=== PATIENT | female | born 1960 | race Caucasian/White ===

== ENCOUNTER 2016-10-28 09:41 | Day surgery (SDC) | payer OTHER ==
[2016-10-27 14:43] VITALS: BMI 23.3
[2016-10-28 13:20] VITALS: TEMP 97.8
[2016-10-28 14:24] VITALS: BP 120/76; PULSE 45
== END 2016-10-28 14:23 | disposition home or self-care (01) ==
LOC: JASU-ENDO 09:41
PROVIDERS: ATTEND Internal Medicine Gastroenterology
PROC: 0DJD8ZZ Inspection of Lower Intestinal Tract, Via Natural or Artificial Opening Endoscopic (ICD-10-PCS; principal; 2016-10-28 11:30)
DX: Z86.010 Personal history of colon polyps (principal); K63.89 Other specified diseases of intestine

== ENCOUNTER 2016-11-11 06:05 | Day surgery (SDC) | payer OTHER ==
[2016-11-10 15:33] VITALS: BMI 23.3
[2016-11-11] MEDS ORDERED: MIDAZOLAM HCL 2 MG/2 ML SINGLE DOSE VIAL ONE (07:22)
[2016-11-11] MEDS ORDERED: PROPOFOL 20 ML ONE ×2 (07:22)
[2016-11-11] MEDS ORDERED: LIDOCAINE HCL/PF 2% SDV 5ML VIAL ONE (07:24)
[2016-11-11] MEDS ORDERED: LEVOFLOXACIN 500 MG PREMIX BAG IVPB ONE (07:34)
[2016-11-11] MEDS ORDERED: oxyCODONE HCL 5 MG TABLET PO PRN (08:00)
[2016-11-11] MEDS ORDERED: ELECTROLYTE-148 SOLN 1,000 ML IV SCH (08:00)
--- NOTE | 2016-11-11 08:03 | OP ---
Operative Note - Note: Operative Date: 11/11/16 Pre-Operative Diagnosis: left kidney stone Operation: ESWL Findings: 5mm left kidney stone Post-Operative Diagnosis: Same as Pre-op Surgeon: Braydon Horvath Anesthesia: General Estimated Blood Loss (mls): 0 Operative Report Dictated: Yes
[2016-11-11] MEDS ORDERED: ACETAMINOPHEN 325 MG TABLET (FP) PO PRN (08:06)
[2016-11-11] MEDS ORDERED: ONDANSETRON 4 MG/2 ML VIAL IVPUSH PRN (08:06)
[2016-11-11] MEDS ORDERED: LACTATED RINGERS SOLUTION 1,000 ML IV SCH (08:15)
[2016-11-11 08:32] VITALS: TEMP 97.6
--- NOTE | 2016-11-11 08:40 | OP ---
DATE OF OPERATION: 11/11/2016 PREOPERATIVE DIAGNOSIS: A 5-mm left kidney stone. POSTOPERATIVE DIAGNOSIS: A 5-mm left kidney stone. PROCEDURE: Extracorporeal shock wave lithotripsy. SURGEON: Kevin Gonzales MD INDICATIONS: Patient is a 56-year-old female with history of recurrent nephrolithiasis, noted to have a 5-mm stone in the left kidney. After reviewing treatment options, she elected to undergo ESWL, understanding the risks of bleeding, infection, inadequate fragmentation of stone, and potential need for additional procedures. DESCRIPTION OF PROCEDURE: After informed consent was obtained, the patient was taken to the OR, placed supine on the ESWL table. Under ultrasound guidance, the stone was visualized. Patient was then given general anesthesia. Then, 2500 shocks were delivered under active sonography. There appeared to be fragmentation of stone under sonography. After the shocks were completed, patient was awoken from anesthesia without incident. There were no complications. She was transferred to the recovery room in stable condition. There were no complications. Estimated blood loss was zero. KEVIN GONZALES M.D. [id number]
[2016-11-11 10:53] VITALS: BP 92/50; PULSE 58
== END 2016-11-11 10:53 | disposition home or self-care (01) ==
LOC: JASU-SURG 06:05
PROVIDERS: ATTEND Urology
PROC: 0TF4XZZ Fragmentation in Left Kidney Pelvis, External Approach (ICD-10-PCS; principal; 2016-11-11 07:30)
DX: N20.0 Calculus of kidney (principal)
CPT/HCPCS: 94760

== ENCOUNTER 2018-02-28 03:02 | Emergency (ER) | payer OTHER ==
[2018-02-28 03:27] VITALS: BMI 22.1
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
[2018-02-28 04:11] VITALS: BP 122/76; PULSE 77; TEMP 98.3
== END 2018-02-28 03:58 | disposition home or self-care (01) ==
LOC: JER 03:02
DX: S02.2XXA Fracture of nasal bones, initial encounter for closed fracture (principal); Y04.2XXA Assault by strike against or bumped into by another person, initial encounter; Y93.89 Activity, other specified; Y92.511 Restaurant or cafe as the place of occurrence of the external cause; Y99.0 Civilian activity done for income or pay; E78.00 Pure hypercholesterolemia, unspecified; Z72.0 Tobacco use
CPT/HCPCS: 70160-TC-FY; 99281-25

== ENCOUNTER 2018-04-02 10:18 | Emergency (ER) | payer OTHER ==
[2018-04-02] MEDS ORDERED: FAMOTIDINE 20 MG/50 ML IVPB 20 MG/50 ML MG IVPB ONE ×2 (10:30→12:16)
[2018-04-02] MEDS ORDERED: ACETAMINOPHEN 1000 MG/100 ML VIAL (NON FORMULARY) IVPB ONE (10:30)
[2018-04-02] MEDS ORDERED: ONDANSETRON 4 MG/2 ML VIAL IVPUSH ONE (10:30)
[2018-04-02] MEDS ORDERED: SODIUM CHLORIDE 1,000 ML IV STA (10:30)
[2018-04-02] MEDS ORDERED: ONDANSETRON 4 MG/2 ML VIAL ONE (10:47)
[2018-04-02] MEDS ORDERED: ACETAMINOPHEN INJECTION 100 ML IVPB ONE (10:47)
[2018-04-02] MEDS ORDERED: METOCLOPRAMIDE HCL INJECTION 10 MG/2 ML VIAL IVPUSH ONE (10:52)
[2018-04-02] MEDS ORDERED: METOCLOPRAMIDE HCL INJECTION 10 MG/2 ML VIAL ONE (10:52)
[2018-04-02 11:04] LABS: BASO % 0.4 % (0-2.0); HEMATOCRIT 48.9 % (32.4-45.2); HEMOGLOBIN 16.3 GM/dL (10.7-15.3); LYMPH % 7.8 % (8-40); MCH 29.3 pg (25.7-33.7); MCHC 33.3 g/dl (32.0-36.0); MEAN CELL VOLUME 87.8 fl (80-96); MEAN PLT VOLUME 7.7 fl (7.5-11.1); MONO % 4.7 % (3.8-10.2); NEUT % 87.1 % (42.8-82.8); PLATELET COUNT 351 K/MM3 (134-434); RBC 5.57 M/mm3 (3.60-5.2); RDW 13.5 % (11.6-15.6); WHITE BLOOD COUNT 12.8 K/mm3 (4.0-10.0)
--- NOTE | 2018-04-02 11:07 | PDOC ---
History of Present Illness - General Chief Complaint: Nausea/Vomiting Stated Complaint: VOMITING Time Seen by Provider: 04/02/18 10:24 History Source: Patient Exam Limitations: No Limitations - History of Present Illness Initial Comments: 04/02/18 11:04 Patient is a 57F with history of hiatal hernia, s/p appy, s/p azeem here today complaining of vomiting that started at 6pm yesterday after eating a pasta dish. Patient states that she hasn't been able to keep anything down since then. Denies fevers, endorses chills. Endorses associated epigastric abdominal pain. Denies dysuria, last bowel movement yesterday. Denies etoh, endorses smoking, denies illicits. Past History - Past Medical History Allergies/Adverse Reactions: Allergies Allergy/AdvReac Type Severity Reaction Status Date / Time Penicillins Allergy Severe Swelling Verified 04/02/18 10:24 shellfish derived Allergy Severe Swelling Verified 04/02/18 10:24 Home Medications: Ambulatory Orders Omeprazole Magnesium [Prilosec (OTC)] 40 mg PO HS 03/22/12 Aspirin [ASA -] 81 mg PO HS 10/22/15 Metoclopramide HCl [Reglan -] 10 mg PO DAILY #7 tablet 04/02/18 Anemia: No Asthma: No Cancer: No Cardiac Disorders: No CVA: No COPD: No CHF: No Dementia: No Diabetes: No GI Disorders: Yes (HIATAL HERNIA,, POLYPS) Disorders: No HTN: No Hypercholesterolemia: Yes Liver Disease: No Seizures: No Thyroid Disease: No - Surgical History Abdominal Surgery: No Appendectomy: Yes Cardiac Surgery: No Cholecystectomy: Yes Lung Surgery: No Neurologic Surgery: No Orthopedic Surgery: Yes - Immunization History Immunization Up to Date: Yes - Suicide/Smoking/Psychosocial Hx Smoking Status: Yes Smoking History: Current every day smoker Have you smoked in the past 12 months: No Number of Cigarettes Smoked Daily: 15 Information on smoking cessation initiated: Yes 'Breaking Loose' booklet given: 10/22/15 Hx Alcohol Use: No Drug/Substance Use Hx: No Substance Use Type: None Hx Substance Use Treatment: No Review of Systems - Review of Systems Comments:: 04/02/18 11:05 GENERAL/CONSTITUTIONAL: No fever or chills. No weakness. HEAD, EYES, EARS, NOSE AND THROAT: No change in vision. No sore throat. CARDIOVASCULAR: No chest pain or shortness of breath RESPIRATORY: No cough, wheezing, or hemoptysis. GASTROINTESTINAL: +nausea, vomiting. No diarrhea or constipation. GENITOURINARY: No dysuria, frequency, or change in urination. MUSCULOSKELETAL: No joint or muscle swelling or pain. No neck or back pain. SKIN: No rash NEUROLOGIC: No headache, vertigo, loss of consciousness, or change in strength/ sensation. ENDOCRINE: No increased thirst. No abnormal weight change HEMATOLOGIC/LYMPHATIC: No anemia, easy bleeding, or history of blood clots. ALLERGIC/IMMUNOLOGIC: No hives or skin allergy. *Physical Exam - Vital Signs Last Vital Signs Temp Pulse Resp BP Pulse Ox 99.2 F 61 20 125/70 100 04/02/18 10:24 04/02/18 10:24 04/02/18 10:24 04/02/18 10:24 04/02/18 10:24 - Physical Exam Comments: 04/02/18 11:06 GENERAL: Awake, alert, and fully oriented HEAD: No signs of trauma, normocephalic, atraumatic EYES: PERRLA, EOMI, sclera anicteric, conjunctiva clear ENT: Auricles normal inspection, hearing grossly normal, nares patent, oropharynx clear without exudates. Moist mucosa NECK: Normal ROM, supple, no lymphadenopathy, JVD, or masses LUNGS: No distress, speaks full sentences, clear to auscultation bilaterally HEART: Regular rate and rhythm, normal S1 and S2, no murmurs, rubs or gallops, peripheral pulses normal and equal bilaterally. ABDOMEN: Soft, +epigastric tenderness, normoactive bowel sounds. No guarding, no rebound. No masses EXTREMITIES: Normal inspection, Normal range of motion, no edema. No clubbing or cyanosis. NEUROLOGICAL: Cranial nerves II through XII grossly intact. Normal speech, no focal sensorimotor deficits SKIN: Warm, Dry, normal turgor, no rashes or lesions noted. ED Treatment Course - LABORATORY CBC & Chemistry Diagram: 04/02/18 10:52 04/02/18 10:52 Medical Decision Making - Medical Decision Making 04/02/18 11:07 Patient is 57F here today with vomiting. Vital signs normal and stable. DDx includes, but is not limited to: gastritis, pancreatitis, food poisoning. Will evaluate with abdominal labs, treat with fluids, reglan, pepcid, tylenol. 04/02/18 14:58 Laboratory Tests 04/02/18 04/02/18 04/02/18 10:52 10:52 12:35 WBC 12.8 H Hgb 16.3 H Plt Count 351 BUN 19 H Creatinine 0.8 Troponin I < 0.02 Urine Ketones 40 mg/dl Urine Blood Large Urine Nitrite Negative Ur Leukocyte Esterase Negative CBC shows leukocytosis. Hgb elevated, likely secondary to dehydration. UA shows blood, not on menstrual period. No infection. Troponin undetectable. EKG shows sinus bradycardia with rate of 51. No st elevation/depression. Normal axis. Normal intervals. T wave inversion in V2 and V3, same as EKG done in 2015. Patient reassessed, tolerating PO, asking to go home. Given return precautions, instructed to follow up with primary care physician. *DC/Admit/Observation/Transfer Diagnosis at time of Disposition: Vomiting - Discharge Dispostion Disposition: HOME Condition at time of disposition: Good Decision to Admit order: No - Prescriptions Prescriptions: Metoclopramide HCl [Reglan -] 10 mg PO DAILY #7 tablet - Referrals Referrals: David Dawson [Primary Care Provider] - - Patient Instructions Printed Discharge Instructions: DI for Vomiting -- Adult Additional Instructions: Please follow up with your primary care physician. Please return if you have any new, worsening or concerning symptoms. - Post Discharge Activity
[2018-04-02 11:29] LABS: CHLORIDE 104 mmol/L (98-107); POTASSIUM 3.6 mmol/L (3.5-5.1); SODIUM 143 mmol/L (136-145)
[2018-04-02 11:48] LABS: ALBUMIN 3.9 g/dl (3.4-5.0); ALK PHOS 98 U/L (45-117); ANION GAP 18 MMOL/L (8-16); BILIRUBIN,TOTAL 0.5 mg/dL (0.2-1.0); BLOOD UREA NITROGEN 19 mg/dL (7-18); CALCIUM 9.5 mg/dL (8.5-10.1); CO2 21 mmol/L (21-32); CREATININE 0.8 mg/dL (0.55-1.3); GLUCOSE,RANDOM 132 mg/dL (74-106); LIPASE 145 U/L (73-393); SGOT/AST 17 U/L (15-37); SGPT/ALT 21 U/L (13-61); TOT PROT 7.4 g/dl (6.4-8.2)
--- NOTE | 2018-04-02 12:20 | PDOC ---
Attending Attestation - Resident Resident Name: Cj Serra - ED Attending Attestation I have performed the following: I have examined & evaluated the patient, The case was reviewed & discussed with the resident, I agree w/resident's findings & plan - HPI HPI: 04/02/18 12:19 Blaire 57 YOF PMHx hiatal hernia, s/p azeem and appy, presenting with epigastric abdominal pain, nausea and NBNB emesis x multiple episodes since last night 6pm. Normal BM, though loose stooling. +suspicious food intake, icelandic food/ pasta dish. No other sick contacts. No f/c. - Physicial Exam PE: 04/02/18 12:19 NAD, well appearing, MMM, nl conjunctiva, anicteric; neck supple. lungs clear, RRR, abdomen soft nontender, no CVAT. no guarding or rebound.. DE x4. No peripheral edema. normal color for ethnicity, WWP. +clubbing in fingers 04/02/18 14:41 - Medical Decision Making 04/02/18 12:19 Blaire 57 YOF PMHx hiatal hernia, s/p azeem and appy, presenting with epigastric abdominal pain, nausea and NBNB emesis x multiple episodes since last night 6pm. Normal BM, though loose stooling. +suspicious food intake, icelandic food/ pasta dish. No other sick contacts. No f/c. Vital signs reviewed, wnl. DDx abdominal pain: GERD, PUD, esophageal spasm, pancreatitis, hepatitis, colitis, gastroenteritis, ileus, doubt SBO, medication side effect, hernia Prior notes reviewed, including admissions, discharges and consultations. laboratory results and imaging reviewed, basic labs and lytes wnl, notable for mild WBC ct with hemoconcentration, corrrelating with dehydration/hypovolemia 2/ 2 vomiting. LFTs and lipase wnl. given pepcid, IVF, reglan, with clinical improvement. abdomen soft and benign, non peritoneal to suggest intra abdominal pathology. Tolerating ice chips and no vomiting here. UA with ketones and some blood, but not clinically fitting renal colic. perimenopausal. EKG normal sinus rhythm, no interval abnormalities, narrow QRS, ST segments and morphology normal. Nonspecific T wave abnormalities, TWI in anterior/septal leads, unchanged from prior. Trop neg, doubt ACS /cardiac. Dispo: Pt to be discharged in stable condition. Patient and family made aware of impression and plan, return precautions discussed (including but not limited to worsening pain or symptoms), fevers, or signs of infection, chest pain, respiratory distress, inability to tolerate oral intake, dehydration, syncope, or neurologic changes). Follow up with PMD and/or specialist as recommended, follow up information provided, take medications as instructed for duration of time, rx Reglan PRN n/v, likely food poisoning so start with fluids/soups and adv as tolerated.. continue with supportive care, avoid triggers and precipitants. All questions answered to patient's satisfaction and expressed understanding and comfort with this. 04/02/18 15:15 Heart Score/ECG Review - ECG Impressions Comment:: 04/02/18 15:17 EKG normal sinus rhythm, no interval abnormalities, narrow QRS, ST segments and morphology normal. Nonspecific T wave abnormalities, TWI in anterior/septal leads, unchanged from prior.
[2018-04-02 14:11] VITALS: BP 118/63; TEMP 97.9
[2018-04-02 14:22] LABS: URINE APPEARANCE Clear; URINE BILIRUBIN Small (<2.0 mg/dL); URINE COLOR Yellow; URINE GLUCOSE (UA) Negative (NEGATIVE); URINE KETONE 40 mg/dl (NEGATIVE); URINE LEUK ESTERASE Negative (NEGATIVE); URINE NITRITE Negative (NEGATIVE); URINE UROBILINOGEN 0.2 mg/dL (0.2-1.0)
[2018-04-02 15:25] VITALS: PULSE 60
--- NOTE | 2018-04-04 22:06 | EKG ---
Test Reason : Blood Pressure : / mmHG Vent. Rate : 051 BPM Atrial Rate : 051 BPM P-R Int : 138 ms QRS Dur : 084 ms QT Int : 492 ms P-R-T Axes : 079 057 051 degrees QTc Int : 453 ms SINUS BRADYCARDIA T WAVE ABNORMALITY, CONSIDER ANTERIOR ISCHEMIA ABNORMAL ECG WHEN COMPARED WITH ECG OF 18-MAR-2016 06:26, NONSPECIFIC T WAVE ABNORMALITY NO LONGER EVIDENT IN LATERAL LEADS Confirmed by BRYAN SOSA MD ([id number]) on 04/04/2018 10:06:26 PM Referred By: Confirmed By:BRYAN SOSA MD
== END 2018-04-02 15:15 | disposition home or self-care (01) ==
LOC: JER 10:18
PROC: 3E033GC Introduction of Other Therapeutic Substance into Peripheral Vein, Percutaneous Approach (ICD-10-PCS; principal; 2018-04-02)
PROC: 3E0337Z Introduction of Electrolytic and Water Balance Substance into Peripheral Vein, Percutaneous Approach (ICD-10-PCS; 2018-04-02)
PROC: 3E033NZ Introduction of Analgesics, Hypnotics, Sedatives into Peripheral Vein, Percutaneous Approach (ICD-10-PCS; 2018-04-02)
DX: E78.00 Pure hypercholesterolemia, unspecified (principal)
CPT/HCPCS: 36415; 80053; 81003; 82550; 83690; 84484; 85025; 93005; 93010; 96361; 96365; 96375; 99284-25; J0131; J7030

== ENCOUNTER 2019-02-02 14:36 | Emergency (ER) | payer OTHER ==
[2019-02-02 14:59] VITALS: BP 134/65; PULSE 74; TEMP 98.5; BMI 21.8
--- NOTE | 2019-02-02 14:59 | PDOC ---
Rapid Medical Evaluation Chief Complaint: Pain Time Seen by Provider: 02/02/19 14:56 Medical Evaluation: Allergies Allergy/AdvReac Type Severity Reaction Status Date / Time Penicillins Allergy Severe Swelling Verified 04/02/18 10:24 shellfish derived Allergy Severe Swelling Verified 04/02/18 10:24 02/02/19 14:58 I have performed a brief in-person evaluation of this patient. The patient presents with a chief complaint of: right heel pain x 1 week. no exercise change/ trauma Pertinent physical exam findings: walks with limp I have ordered the following: Xray foot The patient will proceed to the ED for further evaluation. Discharge Disposition - Diagnosis Foot pain, right - Referrals - Patient Instructions - Post Discharge Activity
--- NOTE | 2019-02-02 15:27 | PDOC ---
History of Present Illness - General Chief Complaint: Pain Stated Complaint: RT. FOOT PAIN/ X-RAY Time Seen by Provider: 02/02/19 14:56 History Source: Patient Exam Limitations: No Limitations - History of Present Illness Initial Comments: 02/02/19 15:45 HISTORY OF PRESENT ILLNESS: 58-year-old woman with multiple orthopedic surgeries who presents emergency department for evaluation of atraumatic right heel pain which is worsened over the past 7 days. Patient noted pain worsens when she is ambulatory but improves with rest. Patient denies any trauma. Patient describes the pain as a searing burning sensation to the sole of her right foot localized in the mid foot to the heel. Patient reports the pain is a 15/10. Patient called up her primary doctor who told her to come to emergency department for x-ray and evaluation. Patient has contacted her supervisor filling and packing for evaluation and is secured an appointment for the first week of February. No recent travel or sick contacts. PAST MEDICAL HISTORY: Denies past medical history SURGICAL HISTORY: Denies ALLERGIES: No known drug allergies REVIEW OF SYSTEMS General/Constitutional: Denies fever or chills. Denies weakness, weight change. HEENT: Denies change in vision. Denies ear pain or discharge. Denies sore throat. Cardiovascular: Denies chest pain or shortness of breath. Respiratory: Denies cough, wheezing, or hemoptysis. Gastrointestinal: Denies nausea, vomiting, diarrhea or constipation. Denies rectal bleeding. Genitourinary: Denies dysuria, frequency, or change in urination. Musculoskeletal: see HPI. Skin and breasts: Denies rash or easy bruising. Neurologic: Denies headache, vertigo, loss of consciousness, or loss of sensation. Psychiatric: Denies depression or anxiety. Endocrine: Denies increased thirst. Denies abnormal weight change. Hematologic/Lymphatic: Denies anemia, easy bleeding, or history of blood clots. Allergic/Immunologic: Denies hives or skin allergy. Denies latex allergy. PHYSICAL EXAM General Appearance: Well-appearing, appropriately dressed. No apparent distress , no intoxication. Respiratory/Chest: Lungs CTAB. No shortness of breath, chest tenderness, respiratory distress, accessory muscle use. No crackles, rales, rhonchi, stridor , wheezing, dullness Cardiovascular: RRR. S1, S2. No JVD, murmur, bradycardia, tachycardia. Vascular Pulses: Dorsalis-Pedis (R): 2+, Dorsalis-Pedis (L): 2+ Musculoskeletal/Extremities: Tender to palpation over right calcaneus. No bony deformity, crepitus or step-off is present. Surface of the foot is hypopigmented exanthem the calcaneus to the midfoot. Skin is firm. Integumentary: Appropriate color, dry, warm. No cyanosis, erythema, jaundice or rash Neurologic: anatomy teacher II-XII intact. Fully oriented, alert. Appropriate mood/affect. Motor strength 5/5. No appreciable EOM palsy, facial droop or sensory deficit. Past History - Past Medical History Allergies/Adverse Reactions: Allergies Allergy/AdvReac Type Severity Reaction Status Date / Time Penicillins Allergy Severe Swelling Verified 02/02/19 14:59 shellfish derived Allergy Severe Swelling Verified 02/02/19 14:59 Home Medications: Ambulatory Orders Omeprazole Magnesium [Prilosec (OTC)] 40 mg PO HS 03/22/12 Aspirin [ASA -] 81 mg PO HS 10/22/15 Anemia: No Asthma: No Cancer: No Cardiac Disorders: No CVA: No COPD: No CHF: No Dementia: No Diabetes: No GI Disorders: Yes (HIATAL HERNIA,, POLYPS) Disorders: No HTN: No Hypercholesterolemia: Yes Liver Disease: No Seizures: No Thyroid Disease: No - Surgical History Abdominal Surgery: No Appendectomy: Yes Cardiac Surgery: No Cholecystectomy: Yes Lung Surgery: No Neurologic Surgery: No Orthopedic Surgery: Yes - Immunization History Immunization Up to Date: Yes - Suicide/Smoking/Psychosocial Hx Smoking Status: Yes Smoking History: Current every day smoker Have you smoked in the past 12 months: Yes Number of Cigarettes Smoked Daily: 10 Information on smoking cessation initiated: No 'Breaking Loose' booklet given: 10/22/15 Hx Alcohol Use: No Drug/Substance Use Hx: No Substance Use Type: None Hx Substance Use Treatment: No *Physical Exam - Vital Signs Last Vital Signs Temp Pulse Resp BP Pulse Ox 98.5 F 74 21 H 134/65 100 02/02/19 14:56 02/02/19 14:56 02/02/19 14:56 02/02/19 14:56 02/02/19 14:56 Medical Decision Making - Medical Decision Making 02/02/19 15:50 A/P: 58-year-old with plantar fasciitis Patient is refusing pain medication at this time Discharge home to follow-up with podiatry *DC/Admit/Observation/Transfer Diagnosis at time of Disposition: Plantar fasciitis of right foot - Discharge Dispostion Disposition: HOME Condition at time of disposition: Stable Decision to Admit order: No - Referrals Referrals: Son Amador MD [Staff Physician] - - Patient Instructions Printed Discharge Instructions: DI for Plantar Fasciitis Additional Instructions: Rest. Take [id number] medication such as Tylenol with Aleve or Motrin for pain. Follow manufacture's instructions for appropriate dosage. Keep your previously scheduled appointment with Dr. Amador for reevaluation. Return to the emergency department for any new or worsening symptoms. Thank you very much for choosing us to provide your emergent health care needs. - Post Discharge Activity
== END 2019-02-02 15:35 | disposition home or self-care (01) ==
LOC: JERFT 14:36
DX: M72.2 Plantar fascial fibromatosis (principal)
CPT/HCPCS: 73630-TC-RT-FY; 99281-25

== ENCOUNTER 2019-04-24 16:21 | Emergency (ER) | payer OTHER ==
[2019-04-24 16:29] VITALS: BP 95/61; PULSE 75; TEMP 98.2; BMI 21.6
[2019-04-24] MEDS ORDERED: IBUPROFEN 400 MG TABLET (FP) PO ONE (17:24)
--- NOTE | 2019-04-24 17:36 | PDOC ---
History of Present Illness - General Chief Complaint: Pain Stated Complaint: INJURY Time Seen by Provider: 04/24/19 17:06 History Source: Patient Exam Limitations: Clinical Condition - History of Present Illness Initial Comments: 04/24/19 17:32 Patient with no significant past medical history present with complaint of 3- day history of pain to right lower rib cage which came on suddenly without trauma or injury3 days ago. . Denies shortness of breath, chest pain, dizziness, cough pain, nausea vomiting. Patient reported taking Motrin for pain 3 days ago and has not taken anything else. Denies fever, chills. Denies any other symptoms Is this a multiple visit Asthma Patient?: No Timing/Duration: other (3 days) Past History - Past Medical History Allergies/Adverse Reactions: Allergies Allergy/AdvReac Type Severity Reaction Status Date / Time Penicillins Allergy Severe Swelling Verified 04/24/19 16:58 shellfish derived Allergy Severe Swelling Verified 04/24/19 16:58 Home Medications: Ambulatory Orders Omeprazole Magnesium [Prilosec (OTC)] 40 mg PO HS 03/22/12 Aspirin [ASA -] 81 mg PO HS 10/22/15 Anemia: No Asthma: No Cancer: No Cardiac Disorders: No CVA: No COPD: No CHF: No Dementia: No Diabetes: No GI Disorders: Yes (HIATAL HERNIA,, POLYPS) Disorders: No HTN: No Hypercholesterolemia: Yes Liver Disease: No Seizures: No Thyroid Disease: No - Surgical History Abdominal Surgery: No Appendectomy: Yes Cardiac Surgery: No Cholecystectomy: Yes Lung Surgery: No Neurologic Surgery: No Orthopedic Surgery: Yes - Immunization History Immunization Up to Date: Yes - Psycho Social/Smoking Cessation Hx Smoking Status: Yes Smoking History: Current every day smoker Have you smoked in the past 12 months: Yes Number of Cigarettes Smoked Daily: 10 Information on smoking cessation initiated: No 'Breaking Loose' booklet given: 10/22/15 Hx Alcohol Use: No Drug/Substance Use Hx: No Substance Use Type: None Hx Substance Use Treatment: No Review of Systems - Review of Systems Able to Perform ROS?: Yes Is the patient limited [place]er proficient: No Constitutional: No: Chills, Fever, Malaise HEENTM: No: Symptoms Reported, See HPI, Eye Pain, Blurred Vision, Tearing, Recent change in vision, Double Vision, Cataracts, Ear Pain, Ocular Prothesis, Ear Discharge, Nose Pain, Nose Congestion, Tinnitus, Nose Bleeding, Hearing Loss , Throat Pain, Throat Swelling, Mouth Pain, Dental Problems, Difficulty Swallowing, Mouth Swelling, Other Respiratory: No: Symptoms reported, See HPI, Cough, Orthopnea, Shortness of Breath, SOB with Exertion, SOB at Rest, Stridor, Wheezing, Productive cough, Hemoptysis, Other Cardiac (ROS): No: Symptoms Reported, See HPI, Chest Pain, Edema, Irregular Heart Rate, Lightheadedness, Palpitations, Syncope, Chest Tightness, Other ABD/GI: No: Nausea, Vomiting : No: Burning, Discharge, Frequency, Urgency Musculoskeletal: Yes: Symptoms Reported, See HPI, Muscle Pain (right lower ribcage pain) Integumentary: No: Symptoms Reported All Other Systems: Reviewed and Negative *Physical Exam - Vital Signs Last Vital Signs Temp Pulse Resp BP Pulse Ox 98.2 F 75 18 95/61 99 04/24/19 16:27 04/24/19 16:27 04/24/19 16:27 04/24/19 16:27 04/24/19 16:27 - Physical Exam Comments: 04/24/19 17:32 GENERAL: Well developed, well nourished. Awake and alert. No acute distress. HEENT: Normocephalic, atraumatic. PERRLA, EOMI. No conjunctival pallor. Sclera are non-icteric. Moist mucous membranes. Oropharynx is clear. NECK: Supple. Full ROM. CARDIOVASCULAR: Regular rate and rhythm. No murmurs, rubs, or gallops. Distal pulses are 2+ and symmetric. PULMONARY: No evidence of respiratory distress. Lungs clear to auscultation bilaterally. No wheezing, rales or rhonchi. ABDOMINAL: Soft. Non-tender. Non-distended. No rebound or guarding. No organomegaly. Normoactive bowel sounds. MUSCULOSKELETAL Normal range of motion at all joints. Moderate tenderness to lateral aspect of right lower rib cage over the 11th and 12 rib on right side. SKIN: Warm and dry. Normal capillary refill. No bruising or ecchymosis to skin of right rib. NEUROLOGICAL: Alert, awake, appropriate. Gait is normal without ataxia. PSYCHIATRIC: Cooperative. Good eye contact. Appropriate mood General Appearance: Yes: Nourished, Appropriately Dressed. No: Apparent Distress ED Treatment Course - RADIOLOGY Radiology Studies Ordered: Category Date Time Status CHEST - PA [RAD] Stat Radiology 04/24/19 17:22 Ordered RIBS RIGHT SIDE [RAD] Stat Radiology 04/24/19 17:22 Ordered Medical Decision Making - Medical Decision Making 04/24/19 17:36 Patient with no significant past medical history present with complaint of 3- day history of pain to right lower rib cage which came on suddenly without trauma or injury3 days ago. . Denies shortness of breath, chest pain, dizziness, cough pain, nausea vomiting. Patient reported taking Motrin for pain 3 days ago and has not taken anything else. Denies fever, chills. Denies any other symptoms Exam significant for moderate tenderness to right lower lateral rib cage over the 11th and 12th rib on lateral side. No skin ecchymosis or bruising. Lungs clear to auscultation bilateral. Patient no acute distress. Right rib series and chest x-ray ordered to rule out acute chest pathology. 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 Patient had stated while waiting that if x-ray took so long, she will have her PCP order x-ray to be done another day. Discharge - Discharge Information Problems reviewed: Yes Clinical Impression/Diagnosis: Rib pain on right side Condition: Stable Disposition: ELOPED - Admission No - Follow up/Referral Referrals: Antwon Lr MD [Primary Care Provider] - - Patient Discharge Instructions - Post Discharge Activity
== END 2019-04-24 17:25 | disposition left against medical advice (07) ==
LOC: JERFT 16:21
DX: R07.81 Pleurodynia (principal); F17.210 Nicotine dependence, cigarettes, uncomplicated; Z88.0 Allergy status to penicillin; Z91.013 Allergy to seafood
CPT/HCPCS: 99281-25

== ENCOUNTER 2019-07-07 14:27 | Emergency (ER) | payer OTHER ==
[2019-07-07 14:40] VITALS: BP 101/58; PULSE 63; TEMP 98; BMI 21.9
--- NOTE | 2019-07-07 14:46 | PDOC ---
Rapid Medical Evaluation Chief Complaint: Pain Time Seen by Provider: 07/07/19 14:43 Medical Evaluation: Allergies Allergy/AdvReac Type Severity Reaction Status Date / Time Penicillins Allergy Severe Swelling Verified 07/07/19 14:40 shellfish derived Allergy Severe Swelling Verified 07/07/19 14:40 Vital Signs Temp Pulse Resp BP Pulse Ox 98 F 63 18 101/58 L 100 07/07/19 14:37 07/07/19 14:37 07/07/19 14:37 07/07/19 14:37 07/07/19 14:37 07/07/19 14:43 I have performed a brief in-person evaluation of this patient. The patient presents with a chief complaint of:right hand fingers / hand pain 4th/ 5th digits/ Pertinent physical exam findings: able to bend but not make fist I have ordered the following: nothing The patient will proceed to the ED for further evaluation. Discharge Disposition - Diagnosis Hand pain - Referrals - Patient Instructions - Post Discharge Activity
--- NOTE | 2019-07-07 15:41 | PDOC ---
History of Present Illness - General Chief Complaint: Pain Stated Complaint: RT HAND PAIN Time Seen by Provider: 07/07/19 14:43 History Source: Patient - History of Present Illness Initial Comments: 07/07/19 16:22 Chief complaint: Right hand pain Patient a 58-year-old female who denies medical problems who states she has right hand pain for several days. She has a history of tendon injury to one finger which has not been able to bend in a long time, history of ganglion cysts. Denies any specific injury. Patient has no other symptoms. Patient is requesting x-ray of the hand GENERAL/CONSTITUTIONAL: No fever, weakness. dizziness HEAD, EYES, EARS, NOSE AND THROAT: No change in vision. No ear pain or discharge. No sore throat. CARDIOVASCULAR: No chest pain RESPIRATORY: No shortness of breath or cough GASTROINTESTINAL: No pain, nausea, vomiting, diarrhea or constipation GENITOURINARY: No dysuria MUSCULOSKELETAL: No neck or back pain SKIN: No rash NEUROLOGIC: No headache, vertigo, loss of consciousness, or loss of sensation. GENERAL: The patient is awake, alert, and fully oriented, in no acute distress. HEAD: Normal with no signs of trauma. EYES: Pupils equal, round and reactive to light, sclera anicteric, conjunctiva clear. ENT: pharynx: no erythema, no exudate, uvula midline NECK: supple CHEST: clear, nontender, rr ABD: soft, nontender BACK: no tenderness or signs of injury EXTREMITIES: Normal range of motion, no edema. Patient has clubbing to bilateral hands. Right hand: Unable to flex or extend little finger which patient states is normal for a long time since she cut a tendon and patient is slightly able to flex fourth and third finger and slightly extend but complaining of some pain when she does it NEUROLOGICAL: Normal speech, normal gait. SKIN: Warm, Dry Past History - Past Medical History Allergies/Adverse Reactions: Allergies Allergy/AdvReac Type Severity Reaction Status Date / Time Penicillins Allergy Severe Swelling Verified 07/07/19 14:40 shellfish derived Allergy Severe Swelling Verified 07/07/19 14:40 Home Medications: Ambulatory Orders Omeprazole Magnesium [Prilosec (OTC)] 40 mg PO HS 03/22/12 Aspirin [ASA -] 81 mg PO HS 10/22/15 Anemia: No Asthma: No Cancer: No Cardiac Disorders: No CVA: No COPD: No CHF: No Dementia: No Diabetes: No GI Disorders: Yes (HIATAL HERNIA,, POLYPS) Disorders: No HTN: No Hypercholesterolemia: Yes Liver Disease: No Seizures: No Thyroid Disease: No - Surgical History Abdominal Surgery: No Appendectomy: Yes Cardiac Surgery: No Cholecystectomy: Yes Lung Surgery: No Neurologic Surgery: No Orthopedic Surgery: Yes - Immunization History Immunization Up to Date: Yes - Psycho Social/Smoking Cessation Hx Smoking Status: Yes Smoking History: Current every day smoker Have you smoked in the past 12 months: Yes Number of Cigarettes Smoked Daily: 7 Information on smoking cessation initiated: No 'Breaking Loose' booklet given: 10/22/15 Hx Alcohol Use: No Drug/Substance Use Hx: No Substance Use Type: None Hx Substance Use Treatment: No *Physical Exam - Vital Signs Last Vital Signs Temp Pulse Resp BP Pulse Ox 98 F 63 18 101/58 L 100 07/07/19 14:37 07/07/19 14:37 07/07/19 14:37 07/07/19 14:37 07/07/19 14:37 Medical Decision Making - Medical Decision Making 07/07/19 16:30 58-year-old female with right hand pain, history of ganglion cyst, tendon injury who wants an x-ray of her hand denies any injury. Has no other complaints. No indication for any other work-up. Patient does have a hand surgeon she can follow-up with. Patient is not asking for pain medicine. Discussed issues, findings, results, applicable medications and treatments and follow-up. All these were understood and all questions were answered X-ray was preliminary read by myself, patient cell phone number is [phone] Discharge - Discharge Information Problems reviewed: Yes Clinical Impression/Diagnosis: Hand pain Qualifiers: Laterality: right Qualified Code(s): M79.641 - Pain in right hand Condition: Stable Disposition: HOME - Admission No - Follow up/Referral Referrals: Antwon Lr MD [Primary Care Provider] - - Patient Discharge Instructions Additional Instructions: Follow-up with Dr. Scott Turn to the ER if severe pain, fever or feeling sick - Post Discharge Activity
== END 2019-07-07 16:29 | disposition home or self-care (01) ==
LOC: JERFT 14:27
DX: M79.641 Pain in right hand (principal); K44.9 Diaphragmatic hernia without obstruction or gangrene; E78.00 Pure hypercholesterolemia, unspecified; F17.210 Nicotine dependence, cigarettes, uncomplicated; Z91.013 Allergy to seafood; Z88.0 Allergy status to penicillin
CPT/HCPCS: 73110-TC-RT-FY; 73130-TC-RT-FY; 99281-25

== ENCOUNTER 2020-02-20 04:50 | Day surgery (SDC) | payer OTHER ==
[2020-02-17 15:03] VITALS: BMI 23.6
[2020-02-20] MEDS ORDERED: PROMETHAZINE HCL 25 MG/1 ML VIAL IVPUSH PRN (10:14)
[2020-02-20] MEDS ORDERED: oxyCODONE HCL 5 MG TABLET PO PRN (10:14)
[2020-02-20] MEDS ORDERED: ONDANSETRON 4 MG/2 ML VIAL IVPUSH PRN (10:14)
[2020-02-20] MEDS ORDERED: LACTATED RINGERS SOLUTION 1,000 ML IV SCH (10:15)
[2020-02-20] MEDS ORDERED: MIDAZOLAM HCL 2 MG/2 ML SINGLE DOSE VIAL ONE (10:23)
[2020-02-20] MEDS ORDERED: PROPOFOL 20 ML ONE (10:24)
--- NOTE | 2020-02-20 10:25 | HP ---
Past Medical History - Primary Care Physician PCP:: Raul Castillo - Admission Chief Complaint: 59yo P2 with finding of endometrial mass, admitted for hysteroscopy, excision of endometrial mass, D&C. History of Present Illness: Pt was noted to have endometrial thickening on CT scan. A TVUS showed a possible 2 cm mass w/in endometrial cavity. The pt denies postmenopausal bleeding. 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: Alzheimer's, CVA, Dementia, Migraine, Multiple Sclerosis, Peripheral Neuropathy, Parkinson's, Seizure, Syncope, TIA, Vertigo, Other Cardiovascular: No: AFIB, Aneurysm, Aortic Insufficiency, Aortic Stenosis, CAD, CHF, Deep Vein Thrombosis, HTN, Hyperlipdemia, SC, Mitral Insufficiency, Mitral Stenosis, Murmur, Pulmonary Hypertension, Other Pulmonary: No: Asthma, Bronchitis, Cancer, COPD, O2 Dependent, Pneumonia, Previously Intubated, Pulmonary Embolus, Pulmonary Fibrosis, Sleep Apnea, Other Gastrointestinal: Yes: Hiatal Hernia Hepatobiliary: No: Cirrhosis, Cholelithiasis, Cholecystitis, Choledocholithiasis, Hepatitis A, Hepatitis B, Hepatitis C, Other Renal/: No: Renal Failure, Renal Inusuff, BPH, Cancer, Hematuria, Hemodialysis , Neurogenic Bladder, Renal Calculi, UTI, Other Reproductive: No: Ectopic , Endometriosis, Fibroids, PID, Polycystic Ovary Syndrome, Postmenopausal, Other ...Para: 2 Heme/Onc: No: Anemia, B12 Deficiency, Bleeding Disorder, Cancer, Current Chemotherapy, Current Radiation Therapy, Hemochromatosis, Hypercoaguable State, Myeloproliferative Synd, Sickle Cell Disease, Sickle Cell Trait, Thrombocytopenia, Other Infectious Disease: No: AIDS, C-Diff, Herpes Zoster, HIV, MRSA, STD's, Tuberculosis, VREF, Other Psych: No: Addictions, Anxiety, Bipolar, Depression, Panic, Psychosis, Schizophrenia, Other Musculoskeletal: Yes: Other (degenerative joint dz) Rheumatology: No: Fibromyalgia, Gout, Lupus, Rheumatoid Arthritis, Sarcoidosis, Vasculitis, Other ENT: No: Allergic Rhinitis, Sinusitis, Other Endocrine: No: Woodrow's Disease, Waycross's Disease, Diabetes Insipidus, Diabetes Mellitus, Hyperparathyroidism, Hyperthyroidism, Hypothyroidism, Osteopenia, SIADH, Other Dermatology: No: Basal Cell, Cellulitis, Eczema, Melanoma, Psoriasis, Squamous Cell, Other - Past Surgical History Past Surgical History: Yes: Appendectomy, Arthrosocopy (sholder joints x 2), Breast Biopsy (x 2), Cholecystectomy, , Tubal Ligation Hx Myomectomy: No Hx Transabdominal Cerclage: No Additional Surgical History: sinus surgery x 6, right ankle and right foot surgery, laryngeal surgery - Smoking History Smoking history: Current every day smoker Have you smoked in the past 12 months: Yes Aproximately how many cigarettes per day: 5 - Alcohol/Substance Use Hx Alcohol Use: No Home Medications - Allergies Allergies/Adverse Reactions: Allergies Allergy/AdvReac Type Severity Reaction Status Date / Time chocolate flavor Allergy Severe Swelling Verified 02/20/20 08:53 Penicillins Allergy Severe Swelling Verified 02/20/20 08:53 shellfish derived Allergy Severe Swelling Verified 02/20/20 08:53 - Home Medications Home Medications: Ambulatory Orders Omeprazole Magnesium [Prilosec (OTC)] 40 mg PO PRN PRN 03/22/12 Aspirin [ASA -] 81 mg PO HS 10/22/15 Family Medical History Family Hx Cancer: Father (lung) Review of Systems - Review of Systems Constitutional: reports: No Symptoms Eyes: reports: No Symptoms HENT: reports: No Symptoms Neck: reports: No Symptoms Cardiovascular: reports: No Symptoms Respiratory: reports: No Symptoms Gastrointestinal: reports: No Symptoms Genitourinary: reports: No Symptoms Breasts: reports: No Symptoms Reported Musculoskeletal: reports: No Symptoms Integumentary: reports: No Symptoms Neurological: reports: No Symptoms Endocrine: reports: No Symptoms Hematology/Lymphatic: reports: No Symptoms Psychiatric: reports: No Symptoms Pain Intensity: 0 Physical Exam-GYM MANAGER Vital Signs: Vital Signs Temperature 97.4 F L 02/20/20 09:20 Pulse Rate 54 L 02/20/20 09:20 Respiratory Rate 20 02/20/20 09:20 Blood Pressure 109/59 L 02/20/20 09:20 O2 Sat by Pulse Oximetry (%) 100 02/20/20 09:20 Constitutional: Yes: Well Nourished, No Distress, Calm Eyes: Yes: WNL, Conjunctiva Clear, EOM Intact HENT: Yes: WNL, Atraumatic, Normocephalic Neck: Yes: WNL, Supple, Trachea Midline Cardiovascular: Yes: WNL, Regular Rate and Rhythm Respiratory: Yes: WNL, Regular, CTA Bilaterally Gastrointestinal: Yes: WNL, Normal Bowel Sounds, Soft ...Rectal Exam: Yes: Deferred Renal/: Yes: WNL Pelvis: Yes: WNL External Genitalia: Yes: Normal Internal Exam Deferred: No Vaginal Exam: Yes: Normal Cervix: Yes: Normal Uterus: Yes: Normal Musculoskeletal: Yes: WNL Extremities: Yes: WNL Edema: No Integumentary: Yes: WNL Neurological: Yes: WNL, Alert, Oriented ...Motor Strength: WNL Psychiatric: Yes: WNL, Alert, Oriented Imaging - Results Ultrasound: Report Reviewed Assessment/Plan 59yo P2 with finding of endometrial mass, admitted for hysteroscopy, excision of endometrial mass, D&C. We had discussed the risks, benefits, alternatives of surgery at length including but not limited to infection, bleeding, scarring, perforation, hysterectomy, etc. The pt verbalized understanding and requested to proceed with surgery. I emphasized that all surgeries have risks and no guarantees can be provided
[2020-02-20] MEDS ORDERED: CLINDAMYCIN 600 MG PREMIX BAG IVPB ONE (11:00)
[2020-02-20] MEDS ORDERED: DEXAMETHASONE SOD PHOSPHATE 4 MG/1 ML VIAL ONE (11:04)
[2020-02-20] MEDS ORDERED: LIDOCAINE HCL/PF 2% SDV 5ML VIAL ONE (11:04)
[2020-02-20] MEDS ORDERED: KETOROLAC TROMETHAMINE 30 MG/1 ML VIAL ONE (11:04)
--- NOTE | 2020-02-20 11:26 | OP ---
Operative Note - Note: Operative Date: 02/20/20 Pre-Operative Diagnosis: Endometrial mass Operation: Hysteroscopic myomectomy Findings: EUA revealed a small, mobile uterus w/o pelvic masses. Hysteroscopy revealed a ~2cm light submucosal myoma Post-Operative Diagnosis: Other (Submucosal myoma) Surgeon: Raul Castillo Anesthesiologist/PERSONNEL TRAINING OFFICER: Dot Singh MD Anesthesia: General Specimens Removed: Submucosal myoma (resected in fragments). Endometrial curettings. Estimated Blood Loss (mls): 3 Blood Volume Replaced (mls): 0 Fluid Volume Replaced (mls): 500 Operative Report Dictated: Yes
[2020-02-20 13:22] VITALS: BP 120/70; PULSE 88; TEMP 97.8
--- NOTE | 2020-02-20 17:03 | OP ---
DATE OF OPERATION: 02/20/2020 PREOPERATIVE DIAGNOSIS: Endometrial mass. POSTOPERATIVE DIAGNOSIS: Submucosal myoma. PROCEDURE: Hysteroscopic myomectomy and dilation and curettage. SURGEON: Raul Castillo MD CONCRETE MIXER TRUCK DRIVER: None. ANESTHESIOLOGIST: Dot Singh MD ANESTHESIA: General. COMPLICATIONS: None. ESTIMATED BLOOD LOSS: 3 mL. INTRAVENOUS FLUIDS: 500 mL. PATHOLOGY: Submucous myoma resected in fragments, endometrial curettings. FINDINGS: Examination under anesthesia revealed a small mobile uterus that appeared anteverted and no pelvic or adnexal masses. Hysteroscopy revealed an approximately 2 cm right submucosal myoma protruding into the endometrial cavity. The endometrial cavity appeared to be within normal limits once the fibroid was excised. DESCRIPTION OF PROCEDURE: The patient was met preoperatively. Risks, benefits, and alternatives of surgery were discussed in detail. The consent form was reviewed and discussed. The patient verbalized understanding. All questions were answered. She requested to proceed with the surgery. The patient was then brought to the OR with the IV running. She was placed on the surgical table in the supine position. The general anesthesia was achieved without difficulty. The patient was then placed in a dorsal lithotomy position using adjustable Malik stirrups. She was examined under anesthesia with the findings as described above. The patient was then prepped and draped in the usual sterile fashion. A timeout was conducted as per standard protocol. The surgeon then proceeded with the operation. A weighted speculum was introduced inside the vagina with good visualization of the cervix. The cervix was grasped with a single-toothed tenaculum. The endocervical canal was gently dilated using graduated dilators to accommodate a size-23 Lozoya dilator. A hysteroscope was introduced into the uterine cavity under direct visualization. There was a right submucosal myoma noted to be protruding into the endometrial cavity. The endometrium appeared to be atrophic. The uterine cavity appeared to be otherwise within normal limits. A Symphion resectoscope was then used to excise the submucosal myoma completely. The tissue was sent to Pathology. Once this was completed, the hysteroscope was removed from the patient. A sharp curettage of the uterine cavity was performed. The tissue was also submitted to Pathology. Once this was completed, all of the instruments were removed from the patient. Good hemostasis was noted. Sponge, lap, and instrument counts were correct. The patient was returned to the supine position and she was transferred to the recovery room in stable condition. Shon [id number]
--- NOTE | 2020-02-22 15:04 | PATH ---
Surgical Pathology Report Patient Name: CHRISTOS VALERIO [facility]. Rec. #: [id number] /Age/Gender: 1960 (Age: 59) / F Account: [id number] Location: [facility] SURGICAL Taken: 02/20/2020 Received: 02/20/2020 Reported: 02/22/2020 Physicians: Raul Castillo M.D. Specimen(s) Received A: SUBMUCOSAL FIBROID B: ENDOMETRIAL CURETTINGS Clinical History Submucosal leiomyoma of uterus Final Diagnosis A. SUBMUCOSAL FIBROID, EXCISION: FRAGMENTS OF SMOOTH MUSCLE BUNDLES AND HYALINIZED FIBROVASCULAR TISSUE, CONSISTENT WITH SUBMUCOSAL LEIOMYOMA WITH DEGENERATIVE CHANGE (HYALINIZATION). PORTIONS OF INACTIVE BASAL LAYER ENDOMETRIUM. B. ENDOMETRIAL CURETTINGS: FRAGMENTS OF HYALINIZED FIBROVASCULAR TISSUE COMPATIBLE WITH SUBMUCOSAL LEIOMYOMA WITH DEGENERATIVE CHANGE. STRIPS OF INACTIVE/WEAKLY PROLIFERATIVE ENDOMETRIUM. ENDOCERVICAL TISSUE WITH SQUAMOUS METAPLASIA. Electronically Signed Kalyani Andrews M.D. Gross Description A. Received in formalin labeled "submucosal fibroid," is a 3 g, 3.7 x 3.0 x 0.3 cm aggregate of ac firm tissue fragments. The formalin is filtered and the specimen is entirely submitted in 3 cassettes. B. Received in formalin labeled "endometrial curettings," is a 1.1 x 0.7 x 0.2 cm aggregate of ac red soft tissue fragments. The formalin is filtered and the specimen is entirely submitted in one cassette. DL/02/20/2020 saudi/02/20/2020
== END 2020-02-20 13:31 | disposition home or self-care (01) ==
LOC: JASU-SURG 04:50
PROVIDERS: ATTEND Obstetrics & Gynecology
PROC: 0UJD8ZZ Inspection of Uterus and Cervix, Via Natural or Artificial Opening Endoscopic (ICD-10-PCS; 2020-02-20)
PROC: 0UB98ZZ Excision of Uterus, Via Natural or Artificial Opening Endoscopic (ICD-10-PCS; principal; 2020-02-20 10:30)
PROC: 0UDB7ZX Extraction of Endometrium, Via Natural or Artificial Opening, Diagnostic (ICD-10-PCS; 2020-02-20 10:30)
DX: D25.0 Submucous leiomyoma of uterus (principal); F17.210 Nicotine dependence, cigarettes, uncomplicated
CPT/HCPCS: 86850; 86900; 86901; 88305-TC; 94760

== ENCOUNTER 2025-04-28 09:05 | Inpatient (IN) | payer OTHER ==
[2025-04-28 10:51] LABS: ABSOLUTE IMMATURE GRANULOCYTES 0.04 x10^3/uL (0.0-0.031); BASOPHILS # 0.07 x10^3/uL (0.01-0.08); EOSINOPHIL % 0.9 % (0.7-5.8); EOSINOPHILS # 0.11 x10^3/uL (0.04-0.36); MCHC 34.1 g/dl (32.2-35.5); MEAN CELL VOLUME 84.8 fl (79.4-94.8); MEAN PLT VOLUME 9.4 fl (9.4-12.3); MONOCYTE # 1.07 x10^3/uL (0.24-0.86); MONOCYTE % 8.7 % (4.7-12.5); RDW 13.2 % (12.4-16.4)
[2025-04-28 11:06] LABS: GLUCOSE,RANDOM 100 mg/dL (74-106); TOT PROT 7.2 g/dl (6.4-8.2)
[2025-04-28 11:07] LABS: CO2 19 mmol/L (21-32)
[2025-04-28 11:09] LABS: ALK PHOS 93 U/L (40-150)
[2025-04-28] MEDS: POTASSIUM CHLORIDE ORAL LIQUID 20 MEQ/15 ML PO ONE (11:10)
[2025-04-28] MEDS: MAGNESIUM SULFATE IN WATER 2 GM/50 ML IVPB IVPB ONE (11:10)
[2025-04-28 11:11] LABS: SGPT/ALT 29 U/L (0-55)
[2025-04-28] MEDS ORDERED: POTASSIUM CHLORIDE ORAL LIQUID 20 MEQ/15 ML ONE (11:11)
[2025-04-28 11:12] LABS: CREATININE 0.94 mg/dL (0.55-1.3); SGOT/AST 30 U/L (5-34)
[2025-04-28] MEDS ORDERED: MAGNESIUM SULFATE IN WATER 2 GM/50 ML IVPB IVPB ONE (11:12)
[2025-04-28] MEDS: POTASSIUM CHLORIDE TABS 20 MEQ TABLET.ER (FP) PO ONE (11:27)
[2025-04-28 11:33] LABS: HCV DIAGNOSTIC IN-HOUSE W/RFLX NON-REACTIVE (NONREACTIVE)
[2025-04-28 11:34] LABS: HIV INTERPRETATION NEGATIVE (NEGATIVE)
[2025-04-28] MEDS ORDERED: POTASSIUM CHLORIDE TABS 20 MEQ TABLET.ER (FP) PO ONE (11:35)
[2025-04-28] MEDS: KCL 10 MEQ IVPB 10 MEQ/100 ML INFUS.BAG IVPB SCH ×2 (12:28→17:38)
[2025-04-28] MEDS ORDERED: KCL 10 MEQ IVPB 10 MEQ/100 ML INFUS.BAG IVPB ONE (12:32)
[2025-04-28] MEDS ORDERED: ACETAMINOPHEN 325 MG TABLET (FP) PO PRN (13:54)
[2025-04-28] MEDS: GABAPENTIN 300 MG CAPSULE PO SCH (14:56)
[2025-04-28 17:12] VITALS: BMI 19.5
[2025-04-28] MEDS: PANTOPRAZOLE 40 MG TABLET PO SCH (20:56)
[2025-04-28] MEDS: ASPIRIN COATED 81 MG TABLET.EC PO SCH (20:56)
[2025-04-28] MEDS: ROSUVASTATIN CA 20 MG TABLET PO SCH (21:21)
[2025-04-29 01:41] VITALS: RESP 18
[2025-04-29 07:58] LABS: MCHC 33.8 g/dl (32.2-35.5); MEAN CELL VOLUME 85.2 fl (79.4-94.8); MEAN PLT VOLUME 9.8 fl (9.4-12.3); RDW 13.4 % (12.4-16.4)
[2025-04-29 08:12] LABS: GLUCOSE,RANDOM 82 mg/dL (74-106)
[2025-04-29 08:13] LABS: TOT PROT 5.7 g/dl (6.4-8.2)
[2025-04-29 08:14] LABS: CO2 22 mmol/L (21-32)
[2025-04-29 08:15] LABS: ALK PHOS 86 U/L (40-150)
[2025-04-29 08:18] LABS: CREATININE 0.79 mg/dL (0.55-1.3); SGOT/AST 22 U/L (5-34); SGPT/ALT 19 U/L (0-55)
[2025-04-29 09:18] VITALS: BP 90/50; PULSE 71; TEMP 98
[2025-04-29] MEDS: POTASSIUM CHLORIDE TABS 20 MEQ TABLET.ER (FP) PO ONE (09:26)
[2025-04-29] MEDS ORDERED: PANTOPRAZOLE 40 MG TABLET PO SCH (10:00)
[2025-04-29] MEDS ORDERED: SODIUM CHLORIDE 1,000 ML with POTASSIUM CHLORIDE 20 MEQ IV SCH (10:00)
[2025-04-29] MEDS: SODIUM CHLORIDE 0.9%/KCL 20 MEQ/1,000 ML INFUS.BAG IV SCH (10:18)
[2025-04-29] MEDS: POTASSIUM CHLORIDE 20 MEQ in SODIUM CHLORIDE 1,000 ML IV SCH (11:27)
[2025-05-03 13:10] LABS: RENIN ACTIVITY(PRA) 25.374 ng/mL/hr (0.167-5.380)
== END 2025-04-29 15:23 | disposition home or self-care (01) | DRG 425 ==
LOC: JER 09:05 → JERBED 12:06 → J4S 14:30 → JERBED 14:30 → J4S 14:31
PROVIDERS: ADMIT Family Medicine; ATTEND Family Medicine
DX: E87.6 Hypokalemia (principal); E11.9 Type 2 diabetes mellitus without complications; E78.5 Hyperlipidemia, unspecified; F17.210 Nicotine dependence, cigarettes, uncomplicated; K21.9 Gastro-esophageal reflux disease without esophagitis; K52.9 Noninfective gastroenteritis and colitis, unspecified; R11.2 Nausea with vomiting, unspecified
CPT/HCPCS: 36415; 80053; 82088; 82436; 82533; 83735; 83930; 83935; 84133; 84244; 84300; 84443; 85025; 85027; 86803; 87389; 93005; 93010; 99285-25